=== PATIENT | male | born 1950 | race Caucasian/White ===

== ENCOUNTER 2020-06-29 09:40 | Emergency (ER) | payer MEDICARE ==
[~2020-06-29] VITALS: Ht 175.3 cm; Wt 100.0 kg
[2020-06-29 09:49] VITALS: BP 156/102
== END 2020-06-29 11:13 | disposition home or self-care (01) ==
LOC: EMS 09:49
DX: E11.9 Type 2 diabetes mellitus without complications (principal)
CPT/HCPCS: 82962; 99282